=== PATIENT | female | born 1965 | race African-American/Black ===

== ENCOUNTER 2017-08-17 10:23 | Emergency (ER) | payer MEDICAID ==
[~2017-08-17] VITALS: Ht 170.2 cm; Wt 140.0 kg
[~2017-08-17 10:23] MED LIST: ASPI-1159 PO; ENAL10TA PO; FURO80TA87 PO; HYDR-519 PO; HYDR25TA PO; LISI10TA5 PO; LISI30TA36 PO; QUET300T2 PO; TRAM50TA3 PO; ZOLOFT PO
[2017-08-17] MEDS ORDERED: MORPHINE SULFATE 4 MG/ML CPJ (NOT FOR IM USE) IV STA (10:46)
[2017-08-17] MEDS ORDERED: ONDANSETRON HCL 4MG/2ML VIAL IV STA (10:46)
[2017-08-17 11:27] LABS: BASOPHILS % 0.6 % (0.0-2.0); HEMATOCRIT. 42.3 % (36.0-48.0); HEMOGLOBIN. 14.7 g/dL (12.0-16.0); LYMPHOCYTES % 32.5 % (20.0-50.0); MEAN CORPUSCULAR HEMOGLOBIN 31.4 pg (28.0-32.0); MEAN CORPUSCULAR VOLUME 90.7 fL (81.0-99.0); MEAN PLATELET VOLUME 8.5 fl (7.4-10.4); NEUTROPHILS % 54.9 % (40.0-76.0); PLATELET 272 x1000/uL (130-400); RED BLOOD CELL COUNT 4.66 mill/uL (4.2-5.4); RED CELL DISTRIBUTION WIDTH 13.8 % (11.6-14.6)
[2017-08-17 11:33] LABS: CHLORIDE 106 mEq/L (98-107)
[2017-08-17 11:50] LABS: CLARITY URINE CLEAR (CLEAR); COLOR URINE YELLOW (YELLOW); KETONES URINE NEGATIVE (NEGATIVE); LEUKOCYTE ESTERASE URINE NEGATIVE (NEGATIVE); NITRITE URINE NEGATIVE (NEGATIVE); OCCULT BLOOD URINE NEGATIVE (NEGATIVE); PH URINE 5.5 (4.5-8.0); PROTEIN URINE NEGATIVE (NEGATIVE); SPECIFIC GRAVITY URINE 1.016 (1.005-1.030); UROBILINOGEN URINE 0.2 E.U./dL (0.2-1.0)
[2017-08-17 14:19] VITALS: BP 122/78
== END 2017-08-17 15:17 | disposition home or self-care (01) ==
LOC: ER 11:02
DX: R10.11 Right upper quadrant pain (principal); M25.561 Pain in right knee; M54.9 Dorsalgia, unspecified; M19.90 Unspecified osteoarthritis, unspecified site; I10 Essential (primary) hypertension; F32.9 Major depressive disorder, single episode, unspecified; F20.9 Schizophrenia, unspecified; F14.10 Cocaine abuse, uncomplicated; Z90.49 Acquired absence of other specified parts of digestive tract; Z79.82 Long term (current) use of aspirin; Z88.0 Allergy status to penicillin
CPT/HCPCS: 36415; 73562; 76705; 80053; 81003; 81025; 83690; 85025; 85610; 96374; 96375; 99285; J2270; J2405; Z7610